=== PATIENT | female | born 1975 | race Caucasian/White ===

== ENCOUNTER 2024-02-29 14:45 | Emergency (ER) | payer OTHER, SELFPAY ==
[2024-02-29 14:50] VITALS: BP 161/83
--- NOTE | 2024-02-29 14:50 | ED.GENMED ---
ED Provider Triage
<Yolanda Caal PA-C - Last Filed: 02/29/24 14:56>
-
Patient seen by provider in Triage?: Seen in Triage
Attestation: A medical screening examination has been initiated by a qualified medical provider. Based on the assessment performed at this time, it has been determined that an emergent medical condition may exist and the patient has been informed
that further medical evaluation and possible additional diagnostic testing may be needed.
HPI: 49yoF here after a fall last night around 7pm. Fell going up steps. Landed on chin. No LOC. C/o headache, neck pain, trouble breathing. Cervical collar placed by nursing staff.
GENERAL: Alert , in no apparent distress
EYE: No visual abnormalities.
NECK: Trachea midline
ENT: No visible abnormalities.
LUNGS: No acute respiratory distress
NEUROLOGICAL: Alert and oriented
SKIN: Skin intact. No visible changes.
MUSCULOSKELETAL: Moving extremities normally
PSYCH: Normal and appropriate interaction.
This is a medical evaluation conducted in person to initiate diagnostic evaluation and provide initial therapeutics. Please see further documentation by the treating clinician.
CT head, CT cervical spine, and CXR ordered.
History of Present Illness
<Yolanda Caal PA-C - Last Filed: 02/29/24 14:56>
General
Chief Complaint: Fall
Time Seen by Provider: 02/29/24 19:22
<Philip Mancini DO - Last Filed: 03/01/24 20:19>
General
Source: patient
History of Present Illness
History of Present Illness:
49-year-old female presents to the emergency room for evaluation after suffering a fall last evening. Patient fell struck her chin. She has an abrasion on her chin. Also complains of neck pain. Patient evidently stated in triage she had
paresthesias of her left arm and leg. Currently she denies these. She said they were coming and going but now they are gone. No focal weakness. No headache at this time. No significant neck pain at this time.
Past History
<Yolanda Caal PA-C - Last Filed: 02/29/24 14:56>
Past History
ED Past Medical History: HTN; Negative Asthma, Hypercholesterolemia or NIDDM
ED Past Surgical History:
Social History
Tobacco: Smoker
Alcohol: None
Personal:
Living: with family
Employment: Employed
Phy Exam
<Philip Mancini DO - Last Filed: 03/01/24 20:19>
Physical Exam
Physical Exam:
General: Awake, Alert, Oriented X3. No acute distress.
Vitals: unremarkable
Head: Atraumatic, abrasion to the chin without any laceration that required sutures
Eyes: Pupils equal, EOMI
Throat: Airway intact, no exudates
Neck: Trachea midline, no bony point tenderness to palpation.
Lungs: Clear and equal b/l
Heart: Regular rate, no murmurs
Abd: Soft, Nontender, No pulsatile mass
Neuro: Cranial nerves intact, muscle strength equal bilaterally, cerebellar exam normal. No focal neurologic deficits whatsoever. Sensation is intact throughout.
Skin: Warm, dry, no rash
Extremities: pulses equal b/l, no edema
Course
<Yloanda Caal PA-C - Last Filed: 02/29/24 14:56>
Orders/Labs/Results
Orders:
Orders
02/29/24 14:54
CT Cervical Spine W/o Iv Contr Urgent
Comment:
Reason For Exam: fall, neck pain
CT Head W/o Iv Contrast Urgent
Comment:
Reason For Exam: fall, head injury
02/29/24 14:55
CR Chest - 2 Views Urgent
Comment:
Reason For Exam: SOB, fall
Vital Signs
Initial and Last Documented VS:
Initial Vital Signs
Temp Pulse Resp BP Pulse Ox
98.3 F 86 16 161/83 98
02/29/24 14:50 02/29/24 14:50 02/29/24 14:50 02/29/24 14:50 02/29/24 14:50
Last Documented Vital Signs
Temp Pulse Resp BP Pulse Ox
98.1 F 76 16 117/56 100
02/29/24 18:35 02/29/24 19:46 02/29/24 18:35 02/29/24 18:35 02/29/24 19:46
<Philip Mancini DO - Last Filed: 03/01/24 20:19>
Orders/Labs/Results
Orders:
Orders
02/29/24 14:54
CT Cervical Spine W/o Iv Contr Urgent
Comment:
Reason For Exam: fall, neck pain
CT Head W/o Iv Contrast Urgent
Comment:
Reason For Exam: fall, head injury
02/29/24 14:55
CR Chest - 2 Views Urgent
Comment:
Reason For Exam: SOB, fall
Vital Signs
Initial and Last Documented VS:
Initial Vital Signs
Temp Pulse Resp BP Pulse Ox
98.3 F 86 16 161/83 98
02/29/24 14:50 02/29/24 14:50 02/29/24 14:50 02/29/24 14:50 02/29/24 14:50
Last Documented Vital Signs
Temp Pulse Resp BP Pulse Ox
98.1 F 76 16 117/56 100
02/29/24 18:35 02/29/24 19:46 02/29/24 18:35 02/29/24 18:35 02/29/24 19:46
<DO Gila Quiles Last Filed: 03/01/24 20:19>
MDM/Problems Addressed
Differential Diagnosis Includes:
Cervical spine fracture, radiculopathy, concussion
MDM/Problems Addressed:
Patient has no focal deficits at the time my evaluation. Sensation is intact. CTs show no intracranial injury nor any cervical spine injury. Given her symptoms have resolved I do not believe there is any intervention necessary at this time.
Patient should follow with her primary care provider.
<Philip Mancini DO - Last Filed: 03/01/24 20:19>
*Radiology
Radiology exam reviewed: radiology read reviewed
*Critical Care Note
Total Time (30-74mins, 75-104mins- exclusive of procedures): Not Applicable
ED Attending Note
<Yolanda Caal PA-C - Last Filed: 02/29/24 14:56>
-
Portions of this chart may have been created with voice recognition software.� Occasional wrong word or��sound alike� substitutions may have occurred due to the inherent limitations of voice recognition software.
Discharge Plan
Departure
Patient Disposition: Home (Routine Discharge)
Date of Disposition: 02/29/24
Time of Disposition: 19:28
Patient with high blood pressure during this ER visit?: No
Condition: Good
Discharge Problem:
Head injury, Abrasion of chin
Instructions: Head Injury in Adults (DC), Skin Abrasions (DC)
Prescriptions:
No Action
ondansetron 4 MG tablet,disintegrating
4 mg PO TIDPRN PRN (Reason: nausea/vomiting) Qty: 6 0RF
Referrals:
UNKNOWN - PT DOES,NOT KNOW [Unknown Provider] -
Stand Alone Forms: Return to Work
Interventions
Interventions:
*Risk Screen - Suicide Last Done: 02/29/24 19:46
*Neglect/Abuse Screening Last Done: 02/29/24 19:46
*Nursing Disposition Last Done: 02/29/24 19:46
ED- Neurological Assessment Last Done: 02/29/24 19:46
Discharge Date and Time
Discharge Date/Time: 02/29/24 19:47
Print Language: HUNGARIAN
[2024-02-29 18:35] VITALS: BP 117/56
== END 2024-02-29 19:47 | disposition home or self-care (01) ==
LOC: EMR 14:45
PROVIDERS: EMERGENCY PHYSICIAN Emergency Medicine
DX: S09.90XA Unspecified injury of head, initial encounter (principal); S00.81XA Abrasion of other part of head, initial encounter; W10.9XXA Fall (on) (from) unspecified stairs and steps, initial encounter; I10 Essential (primary) hypertension; F17.200 Nicotine dependence, unspecified, uncomplicated
CPT/HCPCS: 99284; 70450; 71046; 72125